=== PATIENT | female | born 1990 | race Caucasian/White ===

== ENCOUNTER 2017-05-01 12:53 | Observation (INO) ==
[2017-05-01] MEDS ORDERED: NS 1,000 ML IV ONE ×2 (13:36→15:48)
[2017-05-01] MEDS ORDERED: ZOFRAN IV ONE (13:37)
[2017-05-01] MEDS ORDERED: MORPHINE IV ONE (13:37)
[2017-05-01 13:43] LABS: BASO% 0.5 % (0.0-0.8); EOS# 0.04 X1000 (0.0-0.7); EOS% 0.5 % (0.0-10.0); HEMATOCRIT 40.4 % (37.0-47.0); HEMOGLOBIN 13.6 g/dL (12.0-16.0); IMM GRAN# 0.04 X1000 (0.0-0.04); IMM GRAN% 0.5 % (0.0-0.5); LYMPH# 0.73 X1000 (1.2-3.4); LYMPH% 8.8 % (20.5-51.1); MANUAL DIFF NEEDED? NO; MCHC 33.7 g/dL (33-37); MCV 83.1 FL (81-99); MONO# 0.39 X1000 (0.11-0.59); MONO% 4.7 % (1.7-9.3); MPV 10.7 FL (7.4-10.4); PLT 250 X1000 (130-400); RBC 4.86 XMIL (4.2-5.4)
[2017-05-01 13:54] LABS: AGAP 13; ALBUMIN 4.4 g/dL (3.5-5.0); ALKALINE PHOSPHATASE 92 U/L (32-104); AMYLASE 76 U/L (20-200); BUN 13 mg/dL (8-22); CALCIUM 9.1 mg/dL (8.8-10.2); CHLORIDE 105 mmol/L (98-107); COSMO 282; GOT 17 U/L (10-30); GPT 41 U/L (10-36); LIPASE 20 U/L (13-60); POTASSIUM 4.1 mmol/L (3.5-5.1); SODIUM 141 mmol/L (136-145); TCO2 23 mmol/L (25-35); TOTAL BILIRUBIN 0.35 mg/dL (0.20-1.00); TOTAL PROTEIN 7.9 g/dL (6.3-8.3)
[2017-05-01 14:24] LABS: BILIRUBIN URINE NEGATIVE (NEGATIVE); BLOOD URINE NEGATIVE (NEGATIVE); COLOR YELLOW; GLUCOSE URINE NEGATIVE (NEGATIVE); LEUKOCYTES URINE SMALL (NEGATIVE); NITRITE URINE NEGATIVE (NEGATIVE); PROTEIN URINE TRACE mg/dL (NEGATIVE); SP GRAVITY URINE 1.019; TURBIDITY URINE HAZY (CLEAR); UR EPITHELIAL CELLS >10 /HPF (<10); URINE BACTERIA NEGATIVE /HPF; URINE CULTURE NEEDED? YES; URINE MICRO REVIEW NEEDED? NO; URINE RBC <10 /HPF (<10); UROBILINOGEN URINE NORMAL (NORMAL)
[2017-05-01 14:31] LABS: URINE SOURCE CLEAN CATCH
--- NOTE | 2017-05-01 15:13 | Diag Imaging Result Doc PS360 ---
EXAM: CT ABD/PELVIS W/ IV CONT ONLY HISTORY: abd pain, n/v after lap wali TECHNIQUE: CT of the abdomen and pelvis with intravenous contrast COMMENT: The current study is compared without of 04/06/2017 considering differences in inspiration there is been no appreciable change in the visualized portions of the chest. The spleen is enlarged but has not changed significantly since the previous study. The adrenal glands and pancreas are stable in appearance. The liver is unremarkable. The kidneys are without evidence of hydronephrosis or mass. There are multiple stones particularly on the left side where there is a stone in the mid posterior calyx measuring over 7 mm. There is a fairly large amount of gas in the subcutaneous fat around and above the level of the umbilicus. This was not the case on the previous study. This is probably postsurgical in origin. The appendix is normal in appearance. The gallbladder is absent. There is no evidence of bowel obstruction or significant adenopathy. No abdominal aortic aneurysm is present. Pelvis: There is a small amount of free fluid in the cul-de-sac. This is fairly dense at over 38 Hounsfield units. It is possible that this contains a fair amount of blood. There are no masses. There is no significant adenopathy in the pelvis. The regional skeleton is stable in appearance. IMPRESSION: Postsurgical changes including a minimal amount of hemoperitoneum. Electronically signed by Iban Dorsey 05/01/2017 3:10 PM
[2017-05-01] MEDS ORDERED: PHENERGAN IV ONE (15:38)
[2017-05-01] MEDS ORDERED: SODIUM CHLORIDE 0.9% INJ ONE (15:38)
--- NOTE | 2017-05-01 16:06 | PROVIDER DOCUMENTATION ---
This chart was entered by Diana Velazquez Scribe, acting as scribe for Eldon Mercado PA. HPI-General Adult - General Chief Complaint: Post Op Complaint Stated Complaint: POST OP COMPLAINT/VOMITING Time Seen by Provider: 05/01/17 13:35 Source: patient Allergies/Adverse Reactions: Patient Allergies Allergy/AdvReac Type Severity Reaction Status Date / Time hydrochlorothiazide Allergy Severe RASH Verified 04/06/17 14:38 Penicillins Allergy Unknown Unknown Verified 04/06/17 14:38 Sulfa (Sulfonamide Allergy RASH Verified 05/01/17 14:02 Antibiotics) Latex, Natural Rubber AdvReac Mild RASH Verified 04/06/17 14:38 Home Medications: Home Medication List Medication Instructions Recorded Confirmed Last Taken Type Fexofenadine/Pse E.r. 24 Hr 1 PO DAILY 03/21/17 04/06/17 History [Avani-D 24 Hour Tablet] Gabapentin 300 mg PO DAILY 03/21/17 03/21/17 04/06/17 History Hydrocodone/APAP 10 mg/325 mg 1 each PO Q8H PRN PRN #20 tablet 03/21/17 Rx [Continental-10] Lisinopril 20 mg PO DAILY 03/21/17 03/21/17 04/06/17 History Ondansetron Odt [Zofran 8Mg Odt] 8 mg PO Q8H PRN PRN #10 tablet 03/21/17 Rx Pravastatin Sodium [Pravachol] 40 mg PO DAILY 03/21/17 03/21/17 04/06/17 History Sertraline [Zoloft] 25 mg PO DAILY 03/21/17 03/21/17 04/06/17 History Tamsulosin [Flomax] 0.4 mg PO DAILY #30 capsule 03/21/17 04/06/17 Rx Topiramate [Topamax] 50 mg PO TID 03/21/17 03/21/17 04/06/17 History Gabapentin [Neurontin] 1 tab PO TID 04/06/17 04/06/17 04/06/17 History Levocetirizine Dihydrochloride 1 tab PO DAILY 04/06/17 04/06/17 04/06/17 History [Levocetirizine Dihydrochloride] Tramadol [Ultram] 50 mg PO Q8HR #12 tablet 04/06/17 Unknown Rx Triamterene/Hctz [Maxzide-25] 0.5 tab PO DAILY 04/06/17 04/06/17 04/06/17 History - History of Present Illness -Gen Adult Nature of Presenting Problems: 27 yo F presents to the ER with complaint of n/v after gallbladder removal x3 days ago. States the procedure was outpatient, went home that night and stated having n/v that night. Called Dr. Sharma's office and he advised her to come here. States she has not been able to keep anything down despite taking zofran and phenergan. She does also complain of worsening epigastric abd pain. No fever, back pain, cough, dysuria. Location of Pain/Injury: reports: abdomen Pain Radiation: reports: epigastric Quality of Pain: reports: aching, sharp Onset/Duration: reports: 3 days ago Timing: reports: getting worse Context/Activities at Onset: reports: none Modifying Factors: improves with: nothing Associated Symptoms: reports: nausea, vomiting Similar Symptoms Previously?: No Recently seen or treated by another doctor?: Yes Review of Systems - Adult - REVIEW OF SYSTEMS - ADULT Constitutional: denies: chills, fever Eyes: reports: no symptoms reported Ears, Nose, Mouth & Throat: reports: no symptoms reported Cardiovascular: denies: chest pain, palpitations Respiratory: denies: cough, shortness of breath Gastrointestinal: reports: abdominal pain, nausea, vomiting. denies: diarrhea Genitourinary: reports: no symptoms reported Musculoskeletal: reports: no symptoms reported Integumentary: reports: no symptoms reported Neurological: reports: no symptoms reported Psychiatric: reports: no symptoms reported Endocrine: reports: no symptoms reported Hematologic/Lymphatic: reports: no symptoms reported Allergic/Immunologic: reports: no symptoms reported All Other Systems: Reviewed and Negative Past History - Adult - PAST MEDICAL HISTORY-ADULT Review of Records: reports: Nursing Assessment Review, Medications Reviewed Cardiovascular: reports: HTN, hyperlipidemia Musculoskeletal: reports: fibromyalgia Neurological: reports: headaches/migraines Psychiatric: reports: depression - PRIOR SURGERIES/PROCEDURES Surgical/Procedure History: reports: recent surgery (04/28/17), cholecystectomy, - IMMUNIZATION STATUS Childhood Immunizations: See Nurse Assessment Flu Vaccine: See Nurse Assessment Physical Exam-General - PHYSICAL EXAM-ADULT Initial Vital Signs Reviewed: Yes - CONSTITUTIONAL General Appearance: alert, mild distress - EYES Eyes: PERRL/EOMI, pink conjunctivae - HEAD, EARS, NOSE, MOUTH & THROAT HENMT: normocephalic/atraumatic, normal ENT inspection - NECK Neck: supple, normal inspection - RESPIRATORY Respiratory: no respiratory distress, no accessory muscle use - CARDIOVASCULAR Cardiovascular: normal peripheral pulses, regular rate, rhythm - GASTROINTESTINAL (ABDOMEN) Abdominal Exam: abnormal bowel sounds (hypoactive), tenderness (generalized. wounds c/d/i). negative: guarding - MUSCULOSKELETAL Back Exam: no CVA tenderness, no vertebral tenderness Extremity: normal gait, normal inspection - SKIN Integumentary: normal color, warm/dry - NEUROLOGIC Neurologic: grossly normal, no motor/sensory deficits - PSYCHIATRIC Psych/Mental Status: normal mood/affect, normal thought content, normal thought process, oriented x 3 Progress - PLAN OF CARE/RESULTS Progress/Plan/Lab Results: Vital Signs - 8 hr 05/01/17 13:03 Temperature 97.9 F Pulse Rate 69 Respiratory Rate 18 Blood Pressure 133/77 O2 Sat by Pulse Oximetry 100 Orders Category Date Time Status NPO Diet 05/01/17 13:06 Active AMYLASE [CHEM] Stat Lab 05/01/17 13:09 Ordered CBC WITH ELECTRONIC DIFF [HEME] Stat Lab 05/01/17 13:09 Ordered COMPREHENSIVE METABOLIC PANEL [CHEM] Stat Lab 05/01/17 13:09 Ordered LIPASE [CHEM] Stat Lab 05/01/17 13:09 Ordered TEST-URINE [PREG] Stat Lab 05/01/17 13:06 Uncollected URINALYSIS W/POSS RFLX CULT-1 [URINALYSIS] Stat Lab 05/01/17 13:06 Uncollected 1330: pt continues to have n/v here despite fluids and zofran. will admit for intractable n/v. Case and plan of care discussed with Dr. Cohn. Result Diagrams: 05/01/17 13:09 05/01/17 13:09 - CT/MRI 1 CT Study: Abdomen, Pelvis Impression: See EMR Report CT Results: per rads: post surgical findings and possible small hemoperitoneum. - CONSULTS/PCP/HOSPITALIST Notification #1 *Consult/PCP/Hospitalist*: Dr. Sharma Time Discussed: 13:30 (not concered from surgical aspect. Suspects anesthesia complications. Admit to hospitalist and consult surgery if nessecary. ) #2 Consult: Dr. Shah's OPTICAL SCIENTIST Time Discussed: 13:45 (admit. They will write orders. ) Consult Disposition: Will see in ED Departure - Departure Date of Disposition Decision: 05/01/17 Time of Disposition Decision: 15:38 DIAGNOSIS: S/P laparoscopic cholecystectomy Nausea and vomiting Qualifiers: Vomiting type: unspecified Vomiting Intractability: intractable Qualified Code( s): R11.2 - Nausea with vomiting, unspecified Disposition: ADMITTED INPATIENT 09 Certified Medical Emergency: Emergent Condition: Stable Referrals and Follow-Ups: Ele Bynum MD [Primary Care Provider] - - Critical Care Note This patient required my direct & personal management of CC.: No This chart was documented by the indicated scribe, (Diana Velazquez Scribe) and accurately reflects the services I performed and decisions made by me, Eldon Mercado PA, as attested by the provider's signature.
[2017-05-01] MEDS ORDERED: TYLENOL PO PRN (18:26)
[2017-05-01] MEDS ORDERED: ZOFRAN IV PRN (18:26)
[2017-05-01] MEDS: NS 1,000 ML IV SCH (19:03)
[2017-05-01] MEDS: TOPAMAX PO SCH (19:03)
[2017-05-02] MEDS: ULTRAM PO SCH ×3 (00:35→13:20)
[2017-05-02] MEDS: NS 1,000 ML IV SCH ×2 (04:18→13:22)
--- NOTE | 2017-05-02 05:39 | HISTORY AND PHYSICAL ---
HISTORY OF PRESENT ILLNESS: The patient had a laparoscopic cholecystectomy on Monday afternoon. It is now Monday. She apparently had nausea throughout the weekend and was not able to keep fluids or liquids down. Still feels nauseated. Really does not have much in the way of abdominal pain. Her bowels have been moving. PAST MEDICAL HISTORY: She denies any significant past medical history other than fibromyalgia. Apparently she has hypercholesterolemia and hypertension. ALLERGIES: She is allergic to hydrochlorothiazide, penicillin and sulfa drugs. FAMILY HISTORY: Noncontributory. SURGICAL HISTORY: She has had just 3 C sections and then her recent laparoscopic cholecystectomy. REVIEW OF SYSTEMS: General: She feels like she has probably lost some weight but is not sure. Denies any fever or chills. HEENT: Unremarkable. Respiratory: No increased work of breathing or dyspnea. Cardiovascular: No chest pain or tachy palpitation. GI/: As above, nausea. DIAGNOSTIC DATA: We did a CT of her abdomen and pelvis. There is a small amount of free air in the cul-de-sac that is fairly dense at over 38 Hounsfield unit. It is possible this contains a fair amount of blood. There are no masses. Postsurgical changes including minimal amount of hemoperitoneum but otherwise really unremarkable. PHYSICAL EXAMINATION: VITAL SIGNS: Temperature 97.9 degrees, pulse 69, respirations 18, blood pressure 133/77. Height 5 feet 5 inches. HEENT: The pupils are equal and round. LUNGS: Clear in all lung clement. CARDIOVASCULAR: Regular rate without murmur or S3. ABDOMEN: Soft. SKIN: Warm and dry. She is awake, alert, pleasant. : She reports she is not sure about her urine output. LAB: White count 8280, hematocrit 40, platelet count 250,000. Sodium 141, potassium 4.1, chloride 105, bicarb 23, BUN 13, creatinine 0.8, blood sugar 109, calcium 9.1. Liver functions unremarkable. Amylase 78, lipase 20. Urinalysis unremarkable. ASSESSMENT AND PLAN: Postop laparoscopic cholecystectomy. I suspect her nauseous is still from residual her anesthesia. She also appears a little bit dehydrated on clinical exam. Mucous membranes are a little dry. So, we will give her some fluid. Give her antiemetics and see how we do. I will put her on clear liquids. Hopefully will only require a 24-hour observation her home medications, I may hold for now. I will let her have some Ultram if she needs it for pain. She takes Topamax 50 mg p.o. t.i.d., Zoloft 25 mg daily. I think we better go back on that. Pravachol 40 mg a day, lisinopril 20 mg a day, Neurontin 1 tablet 3 times a day and Avani- D 1 a day, Maxzide 25 half a tablet daily. So, we will hold some of this medicine until tomorrow. Hopefully, she is feeling better. cc: Antonio Fish MD
[2017-05-02] MEDS ORDERED: ZOLOFT PO SCH (09:00)
[2017-05-02] MEDS ORDERED: FLOMAX PO SCH (09:00)
[2017-05-02] MEDS ORDERED: MAXZIDE-25 PO SCH (09:00)
[2017-05-02] MEDS: TOPAMAX PO SCH ×2 (11:05→16:52)
[2017-05-02 13:58] VITALS: BP 118/69
--- NOTE | 2017-05-02 14:40 | PROGRESS NOTE ---
DATE: 05/02/2017 Admitted yesterday. She had laparoscopic cholecystectomy on Monday. She has remain nauseated, very little fluid and no food intake. Appeared volume contracted and persistent nausea which I think was probably triggered from the anesthesia. She is better this morning with IV fluids. We are trying to advance her diet to soft diet. If she tolerates that well and wants to go home we can send her home this afternoon. Remains afebrile. Temp 98 degrees, pulse 60, respirations 16, blood pressure 105/70. CVP less than 6 cm.Lungs: Clear in all lung clement. Cardiovascular: Regular rhythm and rate without murmur or S3. Abdomen: Soft. Skin: Is warm and dry. Weight 245 pounds. Urine output was 5 L. LAB: White count 8280, hematocrit 40, platelet count 250,000. Sodium 141, potassium 4.1, chloride 105, bicarb 23, BUN 13, creatinine 0.8. ASSESSMENT AND PLAN: Volume contraction status post laparoscopic cholecystectomy, persistent nausea. Appears better. Advance to a soft diet. If she does okay, she can go home this afternoon. Renal function looks good. All her lab looks unremarkable. cc: Antonio Fish MD
--- NOTE | 2017-05-02 15:35 | CONSULTATION ---
DATE OF CONSULTATION: 05/02/2017 REQUESTING PHYSICIAN: Dr. Fish. REASON FOR CONSULT: Concerning persistent nausea, vomiting status post laparoscopic cholecystectomy. HISTORY OF PRESENT ILLNESS: A 27-year-old female, well known to me, who had a laparoscopic cholecystectomy done on Monday at the surgery center. The surgery itself was uneventful. She seemed to tolerate it well, but in the initial postoperative period she had significant nausea, was unable to keep anything down. She denies any kind of significant abdominal pain except from some discomfort at her incisions, but no significant abdominal pain. She is still feeling nauseated. Given her persistent nausea and inability to tolerate p.o. we elected to get her admitted to the hospital. She was evaluated in the emergency department, had a CT scan that showed no immediate post surgical complications. PAST MEDICAL HISTORY: Hypercholesterolemia, hypertension, and fibromyalgia. PAST SURGICAL HISTORY: Includes recent laparoscopic cholecystectomy and C-sections. ALLERGIES: Hydrochlorothiazide, penicillin, and sulfa. CURRENT MEDICATIONS: Patient was on pain medicine Zofran and Phenergan. FAMILY HISTORY: Reviewed with patient but noncontributory. REVIEW OF SYSTEMS: A full 10 point review of systems obtained, negative except as specified in HPI. EXAMINATION: Vital Signs: Patient is currently afebrile. Her vital signs have been stable. General: No acute distress. Resting comfortably. HEENT: Normocephalic, atraumatic. Pupils equal, round, reactive to light. Mucous membranes moist. Oropharynx benign. Neck: Supple. Trachea midline. Cardiovascular: Regular rate and rhythm. Lungs: Grossly clear. Abdomen: Soft, nondistended, nontender. No peritoneal signs. Incision is healing well. Skin: No signs of jaundice. Vascular: All extremities perfused. Extremities: Moves all extremities. DIAGNOSTIC DATA: Laboratory reviewed and essentially all within normal limits. CT scan independently reviewed and radiology reviewed, no major post surgical complications noted. ASSESSMENT AND PLAN: A 27-year-old, female with persistent nausea, vomiting, status post laparoscopic cholecystectomy. At this time, I think that her nausea, vomiting is likely related to her body resolving from the anesthesia and the stress of the surgery. I did not see any obvious surgical complication. I agree with hydration and putting her on a diet. At this time, I think she can try a low-fat diet and see how she does. She says her nausea has improved. We will monitor her. If she does not tolerate this we will keep her back down to a clear liquid diet. This was all discussed with the patient. She voiced understanding. cc: David Sharma MD
--- NOTE | 2017-05-02 17:12 | DISCHARGE SUMMARY ---
ADMISSION DATE: 05/01/2017 DISCHARGE DATE: She is a patient of Dr. Ele Bynum who was admitted yesterday 05/01/2017. We will discharge her today. She is status post laparoscopic cholecystectomy about 3 days ago. This was on Monday afternoon and it is now Monday when we admitted her. Unable to keep fluids or liquids down. Did stay nauseated. She does have a history of migraine headaches, fibromyalgia, history of hypertension, hypercholesterolemia. She has taken Maxalt she told me later, about once a week anyway and she gets migraine headaches when she takes nausea medicine and takes other pain medicines. So I think she was still recovering from anesthesia and was a little bit dehydrated. So I gave her some fluid. Next morning she felt better. Nausea had improved so we advanced her to soft diet which she tolerated well and was requesting to go home on 05/02/2017 in the afternoon. She had taken the Maxalt for her migraine. DISCHARGE MEDICATIONS: Keep her on her home medicines. She takes Avani-D extended release 1 a day. Gabapentin 300 mg a day in addition to a t.i.d. of the gabapentin. She had been given some hydrocodone 10 mg q.8 hours p.r.n. Levocetirizine she takes 1 a day. Lisinopril 20 mg a day. Zofran 8 mg p.o. q.8 hours p.r.n. I think that is when she gets migraines. Pravachol 40 mg a day. Zoloft 25 mg a day. Flomax 0.4 mg daily. Topamax 50 mg p.o. t.i.d. Ultram 50 mg q.8 hours p.r.n., and Maxzide 25.5 daily. I want her to kind of stick with bland soft food, go back to liquids if she has more nausea. Follow up with Dr. Sharma. cc: Antonio Fish MD
== END 2017-05-02 18:18 | disposition home or self-care (01) ==
LOC: 4N 12:53 → ED 12:53
PROVIDERS: ATTEND Emergency Medicine